=== PATIENT | female | born 1930 | race Caucasian/White ===

== ENCOUNTER 2017-06-18 20:04 | Inpatient (IN) ==
[2017-06-19] MEDS ORDERED: fentaNYL 100 MCG/2 ML VIAL IV STA (00:10)
[2017-06-19] MEDS ORDERED: fentaNYL 100 MCG/2 ML VIAL ONE (00:41)
[2017-06-19 00:58] LABS: Basophils # 0.1 10*3/uL (0.0-0.2); Basophils % 0.4 % (0.0-0.8); Eosinophils # 0.3 10*3/uL (0.0-0.87); Eosinophils % 2.2 % (0.00-10.9); Hematocrit 34.6 VOL% (35.7-47.0); Hemoglobin 11.7 GM/DL (12.0-16.0); Immature Granulocytes % 0.7 %; Lymphocytes # 1.1 10*3/uL (1.4-4.0); Lymphocytes % 7.9 % (21.3-54.2); Mean Corpuscular HGB Conc 33.8 GM/DL (32-36); Mean Corpuscular Hemoglobin 30 PG (27-34); Mean Corpuscular Volume 87.2 FL (87-102); Mean Platelet Volume 10.8 FL (9.6-12.0); Monocytes # 1.1 10*3/uL (0.11-0.8); Monocytes % 8.3 % (1.7-12.7); Neutrophils # 10.8 10*3/uL (1.4-7.4); Neutrophils % 80.5 % (38.7-73.9); Platelet Count 163 T/CUMM (130-400); Red Blood Count 3.97 MC/CUMM (3.8-5.5); Red Cell Distribution Width 14.7 % (9.3-17.3); White Blood Count 13.4 T/CUMM (4-12)
[2017-06-19 01:19] LABS: Alanine Aminotransferase 19 U/L (13-56); Albumin 3.4 G/DL (3.4-5.0); Alkaline Phosphatase 75 U/L (45-117); Aspartate Amino Transferase 21 U/L (0-37); Bilirubin,Total < 0.39 MG/DL (0.2-1.0); Blood Urea Nitrogen 20 MG/DL (7-18); Calcium 8.6 MG/DL (8.5-10.1); Glucose 96 MG/DL (74-106); Osmolality,Calculated 277.7 MOS/KG (273-304); Potassium 3.8 MMOL/L (3.5-5.1); Sodium 138 MMOL/L (136-145); Total Protein 6.3 G/DL (6.4-8.3)
[2017-06-19] MEDS ORDERED: ONDANSETRON 4 MG/2 ML VIAL IV PRN (03:47)
[2017-06-19] MEDS: DEXTROSE 5% NACL 0.9% 1,000 ML IV SCH ×3 (06:16→20:00)
[2017-06-19] MEDS: MORPHINE 2 MG/1 ML SYRINGE IV PRN (06:17)
[2017-06-19] MEDS ORDERED: ALBUTEROL 2.5 MG/3 ML NEB RESP TX PRN (07:30)
[2017-06-19] MEDS: LINACLOTIDE 145 MCG CAPSULE PO SCH (08:58)
[2017-06-19] MEDS: PANTOPRAZOLE 40 MG TABLET PO SCH (08:59)
[2017-06-19] MEDS: buPROPion XL 150 MG TABLET PO SCH ×2 (08:59→21:41)
[2017-06-19] MEDS: LOSARTAN 50 MG TABLET PO SCH (08:59)
[2017-06-19] MEDS: BUDESONIDE/FORMOTEROL 160-4.5 INHALER 6 GM INH SCH ×2 (08:59→21:33)
[2017-06-19] MEDS: ASPIRIN CHEW 81 MG TABLET PO SCH (08:59)
[2017-06-19] MEDS: SERTRALINE 50 MG TABLET PO SCH (08:59)
[2017-06-19] MEDS: LEVOTHYROXINE 112 MCG TABLET PO SCH (08:59)
[2017-06-19] MEDS ORDERED: PANTOPRAZOLE 40 MG TABLET PO SCH (09:00)
[2017-06-19] MEDS: ACETAMINOPHEN 325 MG TABLET PO PRN (10:21)
[2017-06-19] MEDS: methylPREDNISolone SOD SUC 40 MG/1 ML VIAL IV SCH ×2 (10:21→16:56)
[2017-06-19] MEDS: KETOROLAC 15 MG/1 ML VIAL IM SCH ×2 (16:55→23:33)
[2017-06-19] MEDS: PRAVASTATIN 20 MG TABLET PO SCH (21:41)
[2017-06-20] MEDS: methylPREDNISolone SOD SUC 40 MG/1 ML VIAL IV SCH ×3 (01:42→18:26)
[2017-06-20] MEDS: ACETAMINOPHEN 325 MG TABLET PO PRN (01:56)
[2017-06-20] MEDS ORDERED: ALPRAZolam 0.5 MG TABLET PO PRN (02:12)
[2017-06-20] MEDS: DEXTROSE 5% NACL 0.9% 1,000 ML IV SCH ×3 (03:30→21:07)
[2017-06-20] MEDS: KETOROLAC 15 MG/1 ML VIAL IM SCH ×3 (06:00→22:51)
[2017-06-20] MEDS: LEVOTHYROXINE 112 MCG TABLET PO SCH (06:00)
[2017-06-20] MEDS: PANTOPRAZOLE 40 MG TABLET PO SCH (10:14)
[2017-06-20] MEDS: LOSARTAN 50 MG TABLET PO SCH ×2 (10:14→11:20)
[2017-06-20] MEDS: ASPIRIN CHEW 81 MG TABLET PO SCH (10:16)
[2017-06-20] MEDS: LINACLOTIDE 145 MCG CAPSULE PO SCH (10:16)
[2017-06-20] MEDS: SERTRALINE 50 MG TABLET PO SCH (10:17)
[2017-06-20] MEDS: BUDESONIDE/FORMOTEROL 160-4.5 INHALER 6 GM INH SCH ×2 (10:17→21:09)
[2017-06-20] MEDS: buPROPion XL 150 MG TABLET PO SCH ×2 (10:17→21:05)
[2017-06-20] MEDS ORDERED: cloNIDine 0.1 MG TABLET PO ONE (17:11)
[2017-06-20] MEDS: ALBUTEROL/IPRATROPIUM 3 ML NEB RESP TX SCH (19:46)
[2017-06-20] MEDS: risperiDONE 0.5 MG TABLET PO SCH (21:06)
[2017-06-20] MEDS: cloNIDine 0.1 MG TABLET PO SCH (21:06)
[2017-06-20] MEDS: PRAVASTATIN 20 MG TABLET PO SCH (21:07)
[2017-06-20] MEDS: hydrALAZINE 25 MG TABLET PO SCH (22:51)
[2017-06-21] MEDS: ALBUTEROL/IPRATROPIUM 3 ML NEB RESP TX SCH ×4 (01:11→19:01)
[2017-06-21 04:06] LABS: Basophils % 0.3 % (0.0-0.8); Eosinophils # 0.1 10*3/uL (0.0-0.87); Eosinophils % 1.1 % (0.00-10.9); Hematocrit 32.4 VOL% (35.7-47.0); Hemoglobin 10.8 GM/DL (12.0-16.0); Immature Granulocytes % 0.6 %; Immature Granulocytes Absolute 0.06 #; Lymphocytes # 1.1 10*3/uL (1.4-4.0); Lymphocytes % 10.9 % (21.3-54.2); Mean Corpuscular HGB Conc 33.3 GM/DL (32-36); Mean Corpuscular Hemoglobin 29 PG (27-34); Mean Corpuscular Volume 87.3 FL (87-102); Monocytes # 0.9 10*3/uL (0.11-0.8); Monocytes % 8.4 % (1.7-12.7); Neutrophils # 8.2 10*3/uL (1.4-7.4); Neutrophils % 78.7 % (38.7-73.9); Platelet Count 180 T/CUMM (130-400); Red Blood Count 3.71 MC/CUMM (3.8-5.5); Red Cell Distribution Width 14.8 % (9.3-17.3); White Blood Count 10.4 T/CUMM (4-12)
[2017-06-21 04:34] LABS: Albumin 3.3 G/DL (3.4-5.0); Bilirubin,Total 0.4 MG/DL (0.2-1.0); Calcium 8.9 MG/DL (8.5-10.1); Osmolality,Calculated 281.3 MOS/KG (273-304); Potassium 3.8 MMOL/L (3.5-5.1); Total Protein 6.2 G/DL (6.4-8.3)
[2017-06-21] MEDS: DEXTROSE 5% NACL 0.9% 1,000 ML IV SCH ×3 (05:02→22:10)
[2017-06-21] MEDS: KETOROLAC 15 MG/1 ML VIAL IM SCH ×3 (06:03→23:26)
[2017-06-21] MEDS: LEVOTHYROXINE 112 MCG TABLET PO SCH (06:04)
[2017-06-21] MEDS: ACETAMINOPHEN 325 MG TABLET PO PRN ×2 (08:41→20:46)
[2017-06-21] MEDS: LOSARTAN 50 MG TABLET PO SCH (08:42)
[2017-06-21] MEDS: LINACLOTIDE 145 MCG CAPSULE PO SCH (08:43)
[2017-06-21] MEDS: hydrALAZINE 25 MG TABLET PO SCH ×3 (08:43→20:46)
[2017-06-21] MEDS: ASPIRIN CHEW 81 MG TABLET PO SCH (08:44)
[2017-06-21] MEDS: cloNIDine 0.1 MG TABLET PO SCH ×2 (08:44→20:46)
[2017-06-21] MEDS: SERTRALINE 50 MG TABLET PO SCH (08:45)
[2017-06-21] MEDS: PANTOPRAZOLE 40 MG TABLET PO SCH (08:45)
[2017-06-21] MEDS: BUDESONIDE/FORMOTEROL 160-4.5 INHALER 6 GM INH SCH ×2 (08:46→22:10)
[2017-06-21] MEDS: buPROPion XL 150 MG TABLET PO SCH ×2 (08:58→20:51)
[2017-06-21] MEDS: PRAVASTATIN 20 MG TABLET PO SCH (20:46)
[2017-06-21] MEDS: risperiDONE 0.5 MG TABLET PO SCH (20:47)
[2017-06-22] MEDS: ALBUTEROL/IPRATROPIUM 3 ML NEB RESP TX SCH ×4 (00:49→19:12)
[2017-06-22] MEDS: DEXTROSE 5% NACL 0.9% 1,000 ML IV SCH ×3 (05:22→20:25)
[2017-06-22] MEDS: LEVOTHYROXINE 112 MCG TABLET PO SCH (05:33)
[2017-06-22] MEDS: ACETAMINOPHEN 325 MG TABLET PO PRN (05:37)
[2017-06-22] MEDS: KETOROLAC 15 MG/1 ML VIAL IM SCH (05:39)
[2017-06-22] MEDS ORDERED: CYANOCOBALAMIN 1000 MCG/1 ML VIAL IM ONE (08:05)
[2017-06-22] MEDS ORDERED: ERGOCALCIFEROL 50,000 UNIT CAPSULE PO SCH (08:30)
[2017-06-22] MEDS: PANTOPRAZOLE 40 MG TABLET PO SCH (09:11)
[2017-06-22] MEDS: cloNIDine 0.1 MG TABLET PO SCH ×2 (09:11→20:24)
[2017-06-22] MEDS: BUDESONIDE/FORMOTEROL 160-4.5 INHALER 6 GM INH SCH ×2 (09:12→20:23)
[2017-06-22] MEDS: LOSARTAN 50 MG TABLET PO SCH (09:12)
[2017-06-22] MEDS: SERTRALINE 50 MG TABLET PO SCH (09:12)
[2017-06-22] MEDS: LINACLOTIDE 145 MCG CAPSULE PO SCH (09:12)
[2017-06-22] MEDS: buPROPion XL 150 MG TABLET PO SCH ×2 (09:12→20:25)
[2017-06-22] MEDS: ASPIRIN CHEW 81 MG TABLET PO SCH (09:12)
[2017-06-22] MEDS: hydrALAZINE 25 MG TABLET PO SCH ×3 (09:17→20:24)
[2017-06-22] MEDS: NICOTINE 7 MG/24 HR PATCH TRANSDERM SCH (09:17)
[2017-06-22 09:57] LABS: Osmolality,Calculated 281.7 MOS/KG (273-304); Potassium 3.4 MMOL/L (3.5-5.1)
[2017-06-22] MEDS: risperiDONE 0.5 MG TABLET PO SCH (20:24)
[2017-06-22] MEDS: BACLOFEN 10 MG TABLET PO SCH (20:24)
[2017-06-22] MEDS: PRAVASTATIN 20 MG TABLET PO SCH (20:24)
[2017-06-22] MEDS: MORPHINE 2 MG/1 ML SYRINGE IV PRN (23:19)
[2017-06-23] MEDS: ALBUTEROL/IPRATROPIUM 3 ML NEB RESP TX SCH ×4 (00:40→19:12)
[2017-06-23] MEDS: LEVOTHYROXINE 112 MCG TABLET PO SCH (05:39)
[2017-06-23] MEDS: DEXTROSE 5% NACL 0.9% 1,000 ML IV SCH ×3 (05:39→22:22)
[2017-06-23 06:23] LABS: Calcium 8.1 MG/DL (8.5-10.1); Osmolality,Calculated 282.4 MOS/KG (273-304); Potassium 3.5 MMOL/L (3.5-5.1)
[2017-06-23] MEDS: PANTOPRAZOLE 40 MG TABLET PO SCH (11:11)
[2017-06-23] MEDS: SERTRALINE 50 MG TABLET PO SCH (11:11)
[2017-06-23] MEDS: POTASSIUM CHLORIDE 20 MEQ TABLET PO SCH (11:12)
[2017-06-23] MEDS: buPROPion XL 150 MG TABLET PO SCH ×2 (11:12→21:48)
[2017-06-23] MEDS: hydrALAZINE 25 MG TABLET PO SCH ×3 (11:13→21:48)
[2017-06-23] MEDS: LOSARTAN 50 MG TABLET PO SCH (11:13)
[2017-06-23] MEDS: BACLOFEN 10 MG TABLET PO SCH ×2 (11:14→21:48)
[2017-06-23] MEDS: ASPIRIN CHEW 81 MG TABLET PO SCH (11:15)
[2017-06-23] MEDS: LINACLOTIDE 145 MCG CAPSULE PO SCH (11:16)
[2017-06-23] MEDS: BUDESONIDE/FORMOTEROL 160-4.5 INHALER 6 GM INH SCH ×2 (11:17→21:48)
[2017-06-23] MEDS: cloNIDine 0.1 MG TABLET PO SCH ×2 (11:19→21:48)
[2017-06-23] MEDS: NICOTINE 7 MG/24 HR PATCH TRANSDERM SCH (11:22)
[2017-06-23] MEDS: ACETAMINOPHEN 325 MG TABLET PO PRN ×2 (11:31→16:28)
[2017-06-23] MEDS: PRAVASTATIN 20 MG TABLET PO SCH (21:48)
[2017-06-23] MEDS: risperiDONE 0.5 MG TABLET PO SCH (21:48)
[2017-06-24] MEDS: ALBUTEROL/IPRATROPIUM 3 ML NEB RESP TX SCH ×2 (01:04→08:11)
[2017-06-24] MEDS: LEVOTHYROXINE 112 MCG TABLET PO SCH (06:07)
[2017-06-24] MEDS: DEXTROSE 5% NACL 0.9% 1,000 ML IV SCH (06:07)
[2017-06-24] MEDS ORDERED: CYANOCOBALAMIN 500 MCG TABLET PO SCH (09:00)
[2017-06-24] MEDS: ACETAMINOPHEN 325 MG TABLET PO PRN (10:36)
[2017-06-24] MEDS: buPROPion XL 150 MG TABLET PO SCH (10:37)
[2017-06-24] MEDS: SERTRALINE 50 MG TABLET PO SCH (10:37)
[2017-06-24] MEDS: ASPIRIN CHEW 81 MG TABLET PO SCH (10:38)
[2017-06-24] MEDS: hydrALAZINE 25 MG TABLET PO SCH (10:38)
[2017-06-24] MEDS: PANTOPRAZOLE 40 MG TABLET PO SCH (10:38)
[2017-06-24] MEDS: LOSARTAN 50 MG TABLET PO SCH (10:39)
[2017-06-24] MEDS: cloNIDine 0.1 MG TABLET PO SCH (10:39)
[2017-06-24] MEDS: LINACLOTIDE 145 MCG CAPSULE PO SCH (10:41)
[2017-06-24] MEDS: BACLOFEN 10 MG TABLET PO SCH (10:41)
[2017-06-24] MEDS: POTASSIUM CHLORIDE 20 MEQ TABLET PO SCH (10:43)
[2017-06-24] MEDS: BUDESONIDE/FORMOTEROL 160-4.5 INHALER 6 GM INH SCH (10:43)
[2017-06-24] MEDS: NICOTINE 7 MG/24 HR PATCH TRANSDERM SCH (10:43)
[2017-06-24 11:38] VITALS: BP 158/87
== END 2017-06-24 13:40 | disposition swing bed (61) | DRG 552 ==
LOC: EDUNIT# → EDBD → N.ED 20:04 → N.EDINP 20:04 → N.3E 06-19 04:19
PROVIDERS: ADMIT Internal Medicine; ATTEND Internal Medicine

== ENCOUNTER 2018-01-17 18:56 | Inpatient (IN) ==
[2018-01-17 19:49] LABS: Basophils # 0.1 10*3/uL (0.0-0.2); Basophils % 0.6 % (0.0-0.8); Eosinophils # 0.2 10*3/uL (0.0-0.87); Eosinophils % 1.6 % (0.00-10.9); Hematocrit 31.9 VOL% (35.7-47.0); Hemoglobin 10.4 GM/DL (12.0-16.0); Immature Granulocytes % 0.7 %; Immature Granulocytes Absolute 0.08 #; Lymphocytes # 1.3 10*3/uL (1.4-4.0); Lymphocytes % 11.3 % (21.3-54.2); Mean Corpuscular HGB Conc 32.6 GM/DL (32-36); Mean Corpuscular Hemoglobin 29 PG (27-34); Mean Corpuscular Volume 88.4 FL (87-102); Mean Platelet Volume 11.3 FL (9.6-12.0); Monocytes # 1.1 10*3/uL (0.11-0.8); Monocytes % 9.4 % (1.7-12.7); Neutrophils # 8.7 10*3/uL (1.4-7.4); Neutrophils % 76.4 % (38.7-73.9); Platelet Count 165 T/CUMM (130-400); Red Blood Count 3.61 MC/CUMM (3.8-5.5); Red Cell Distribution Width 15.5 % (9.3-17.3); White Blood Count 11.4 T/CUMM (4-12)
[2018-01-17 20:29] LABS: Albumin 3.6 G/DL (3.4-5.0); Bilirubin,Total 0.4 MG/DL (0.2-1.0); Calcium 8.2 MG/DL (8.5-10.1); Osmolality,Calculated 271.1 MOS/KG (273-304); Potassium 4.6 MMOL/L (3.5-5.1); Total Protein 6.5 G/DL (6.4-8.3)
[2018-01-17 20:53] LABS: Apearance,Urine Slightly Hazy (Clear); Bacteria,Urine Occasional /HPF (Few); Bilirubin,Urine Negative (Negative); Blood, Urine Negative (Negative); Glucose,Urine (UA) Negative (Negative); Hyaline Casts,Urine 11 /LPF (0-3); Ketones,Urine Negative (Negative); Mucus,Urine Occasional /LPF (Occasional); Nitrite,Urine Negative (Negative); Protein,Urine 100 MG/DL; RBC,Urine 1 /HPF (0-4); Squamous Epithelial Cell,Urine Occasional /HPF (0-10); Urine Color Yellow (Yellow); Urine Specific Gravity 1.011 (1.001-1.035); WBC,Urine 7 /HPF (0-6)
[2018-01-17] MEDS ORDERED: ACETAMINOPHEN 325 MG TABLET PO PRN (22:17)
[2018-01-17] MEDS ORDERED: ONDANSETRON 4 MG/2 ML VIAL IV PRN (22:17)
[2018-01-17 23:07] LABS: Thyroid Stimulating Hormone 3.37 uIU/ml (0.358-3.74)
[2018-01-18] MEDS: DOCUSATE SODIUM 100 MG CAPSULE PO SCH ×2 (08:58→21:00)
[2018-01-18] MEDS: PANTOPRAZOLE 40 MG TABLET PO SCH (08:58)
[2018-01-18] MEDS: NITROFURANTOIN MACRO/MONO 100 MG CAPSULE PO SCH (21:00)
[2018-01-19] MEDS: LABETALOL 20 MG/4 ML SYRINGE IV PRN ×3 (00:25→21:40)
[2018-01-19] MEDS: LOSARTAN 50 MG TABLET PO SCH ×2 (01:32→09:06)
[2018-01-19] MEDS: hydrALAZINE 25 MG TABLET PO SCH ×5 (01:33→20:30)
[2018-01-19 08:40] LABS: Basophils # 0.1 10*3/uL (0.0-0.2); Basophils % 0.6 % (0.0-0.8); Eosinophils # 0.1 10*3/uL (0.0-0.87); Eosinophils % 1.2 % (0.00-10.9); Hematocrit 30.4 VOL% (35.7-47.0); Hemoglobin 9.9 GM/DL (12.0-16.0); Immature Granulocytes % 0.5 %; Immature Granulocytes Absolute 0.04 #; Lymphocytes # 0.9 10*3/uL (1.4-4.0); Mean Corpuscular HGB Conc 32.6 GM/DL (32-36); Mean Corpuscular Hemoglobin 28 PG (27-34); Mean Corpuscular Volume 86.6 FL (87-102); Mean Platelet Volume 11.3 FL (9.6-12.0); Monocytes # 0.7 10*3/uL (0.11-0.8); Monocytes % 9.1 % (1.7-12.7); Neutrophils # 6.3 10*3/uL (1.4-7.4); Neutrophils % 77.6 % (38.7-73.9); Platelet Count 134 T/CUMM (130-400); Red Blood Count 3.51 MC/CUMM (3.8-5.5); Red Cell Distribution Width 15.4 % (9.3-17.3); White Blood Count 8.1 T/CUMM (4-12)
[2018-01-19] MEDS: DOCUSATE SODIUM 100 MG CAPSULE PO SCH ×2 (09:06→20:29)
[2018-01-19] MEDS: NITROFURANTOIN MACRO/MONO 100 MG CAPSULE PO SCH ×2 (09:06→20:30)
[2018-01-19] MEDS: PANTOPRAZOLE 40 MG TABLET PO SCH (09:06)
[2018-01-19 09:08] LABS: Albumin 3.6 G/DL (3.4-5.0); Bilirubin,Total 0.7 MG/DL (0.2-1.0); Calcium 8.6 MG/DL (8.5-10.1); Osmolality,Calculated 277.7 MOS/KG (273-304); Potassium 3.7 MMOL/L (3.5-5.1); Total Protein 6.3 G/DL (6.4-8.3)
[2018-01-19] MEDS ORDERED: ACETAMINOPHEN/diphenhydrAMINE 500-25 MG TABLET PO ONE (23:50)
[2018-01-19] MEDS ORDERED: cloNIDine 0.1 MG TABLET PO ONE (23:52)
[2018-01-20] MEDS ORDERED: ERGOCALCIFEROL 50,000 UNIT CAPSULE PO SCH (08:30)
[2018-01-20] MEDS ORDERED: ALBUTEROL 2.5 MG/3 ML NEB RESP TX PRN (08:30)
[2018-01-20] MEDS ORDERED: cloNIDine 0.1 MG TABLET PO SCH (09:00)
[2018-01-20] MEDS ORDERED: BUDESONIDE/FORMOTEROL 160-4.5 INHALER 6 GM INH SCH (09:00)
[2018-01-20] MEDS ORDERED: buPROPion XL 150 MG TABLET PO SCH (09:00)
[2018-01-20] MEDS ORDERED: LINACLOTIDE 145 MCG CAPSULE PO SCH (09:00)
[2018-01-20] MEDS ORDERED: BACLOFEN 10 MG TABLET PO SCH (09:00)
[2018-01-20] MEDS ORDERED: POTASSIUM CHLORIDE 20 MEQ TABLET PO SCH (09:00)
[2018-01-20] MEDS ORDERED: ASPIRIN CHEW 81 MG TABLET PO SCH (09:00)
[2018-01-20] MEDS ORDERED: SERTRALINE 50 MG TABLET PO SCH (09:00)
[2018-01-20] MEDS: DOCUSATE SODIUM 100 MG CAPSULE PO SCH (09:21)
[2018-01-20] MEDS: hydrALAZINE 25 MG TABLET PO SCH (09:22)
[2018-01-20] MEDS: LOSARTAN 50 MG TABLET PO SCH (09:22)
[2018-01-20] MEDS: PANTOPRAZOLE 40 MG TABLET PO SCH (09:22)
[2018-01-20] MEDS: NITROFURANTOIN MACRO/MONO 100 MG CAPSULE PO SCH (09:22)
[2018-01-20 12:06] VITALS: BP 127/53
[2018-01-20] MEDS ORDERED: risperiDONE 0.5 MG TABLET PO SCH (21:00)
[2018-01-20] MEDS ORDERED: PRAVASTATIN 20 MG TABLET PO SCH (21:00)
[2018-01-21] MEDS ORDERED: LEVOTHYROXINE 125 MCG TABLET PO SCH (06:30)
== END 2018-01-20 14:12 | disposition home health service (06) | DRG 690 ==
LOC: EDUNIT# → N.ED 18:56 → N.EDINP 22:17 → N.5E 23:22
PROVIDERS: ADMIT Internal Medicine; ATTEND Internal Medicine

== ENCOUNTER 2019-04-22 08:15 | Observation (INO) ==
[2019-04-22] MEDS ORDERED: HYDROmorphone 2 MG/1 ML VIAL IV STA (09:52)
[2019-04-22] MEDS ORDERED: ONDANSETRON 4 MG/2 ML VIAL IV STA (09:53)
[2019-04-22] MEDS ORDERED: ONDANSETRON 4 MG/2 ML VIAL IV PRN (10:28)
[2019-04-22] MEDS ORDERED: ACETAMINOPHEN 325 MG TABLET PO PRN ×2 (10:28→14:37)
[2019-04-22 11:57] LABS: Basophils % 0.3 % (0.0-0.8); Eosinophils # 0.2 10*3/uL (0.0-0.87); Eosinophils % 1.3 % (0.00-10.9); Hematocrit 34.1 VOL% (35.7-47.0); Hemoglobin 11.1 GM/DL (12.0-16.0); Immature Granulocytes % 1.3 %; Immature Granulocytes Absolute 0.15 #; Lymphocytes # 0.9 10*3/uL (1.4-4.0); Lymphocytes % 7.9 % (21.3-54.2); Mean Corpuscular HGB Conc 32.6 GM/DL (32-36); Mean Corpuscular Volume 90.5 FL (87-102); Mean Platelet Volume 11.4 FL (9.6-12.0); Monocytes % 7.4 % (1.7-12.7); Neutrophils % 81.8 % (38.7-73.9); Platelet Count 146 T/CUMM (130-400); Red Blood Count 3.77 MC/CUMM (3.8-5.5); Red Cell Distribution Width 14.7 % (9.3-17.3); White Blood Count 11.9 T/CUMM (4-12)
[2019-04-22 12:14] LABS: Calcium 8.3 MG/DL (8.5-10.1)
[2019-04-22] MEDS ORDERED: hydrALAZINE 20 MG/1 ML VIAL IV ONE ×2 (12:23→12:29)
[2019-04-22] MEDS ORDERED: hydrALAZINE 20 MG/1 ML VIAL IV PRN (12:29)
[2019-04-22] MEDS ORDERED: cloNIDine 0.1 MG TABLET PO ONE (12:51)
[2019-04-22] MEDS ORDERED: INFLUENZA VIRUS VACCINE 0.5 ML SYRINGE IM ONE (14:00)
[2019-04-22] MEDS ORDERED: BACLOFEN 10 MG TABLET PO PRN (14:02)
[2019-04-22] MEDS ORDERED: ALBUTEROL/IPRATROPIUM 3 ML NEB RESP TX PRN (14:03)
[2019-04-22] MEDS: hydrALAZINE 25 MG TABLET PO SCH ×2 (16:12→20:17)
[2019-04-22] MEDS: CARBOXYMETHYLCELLULOSE 1% OPH SOLN BOTH EYES SCH ×2 (16:14→20:26)
[2019-04-22] MEDS: FERROUS SULFATE 325 MG TABLET PO SCH (18:45)
[2019-04-22] MEDS: ALBUTEROL/IPRATROPIUM 3 ML NEB RESP TX SCH (19:23)
[2019-04-22] MEDS: DONEPEZIL 10 MG TABLET PO SCH (20:17)
[2019-04-22] MEDS: cloNIDine 0.1 MG TABLET PO SCH (20:17)
[2019-04-22] MEDS: DOCUSATE SODIUM 100 MG CAPSULE PO SCH (20:18)
[2019-04-22] MEDS: MULTIVITAMIN (OCUVITE) TABLET PO SCH (20:18)
[2019-04-22] MEDS: TEMAZEPAM 15 MG CAPSULE PO PRN (20:18)
[2019-04-22] MEDS: SIMVASTATIN 10 MG TABLET PO SCH (20:18)
[2019-04-22] MEDS: MEMANTINE 10 MG TABLET PO SCH (20:18)
[2019-04-22] MEDS: ACETAMINOPHEN 325 MG TABLET PO SCH (20:18)
[2019-04-22] MEDS: BUDESONIDE/FORMOTEROL 160-4.5 INHALER 6 GM INH SCH (20:28)
[2019-04-23] MEDS: ALBUTEROL/IPRATROPIUM 3 ML NEB RESP TX SCH ×4 (00:45→20:07)
[2019-04-23] MEDS: LEVOTHYROXINE 125 MCG TABLET PO SCH (06:21)
[2019-04-23] MEDS ORDERED: ERGOCALCIFEROL 50,000 UNIT CAPSULE PO SCH (08:00)
[2019-04-23] MEDS: SERTRALINE 50 MG TABLET PO SCH (10:27)
[2019-04-23] MEDS: LOSARTAN 50 MG TABLET PO SCH (10:27)
[2019-04-23] MEDS: ACETAMINOPHEN 325 MG TABLET PO SCH ×2 (10:27→20:50)
[2019-04-23] MEDS: DOCUSATE SODIUM 100 MG CAPSULE PO SCH ×2 (10:28→20:50)
[2019-04-23] MEDS: hydrALAZINE 25 MG TABLET PO SCH ×3 (10:28→20:50)
[2019-04-23] MEDS: POTASSIUM CHLORIDE 20 MEQ TABLET PO SCH (10:28)
[2019-04-23] MEDS: PANTOPRAZOLE 40 MG TABLET PO SCH (10:28)
[2019-04-23] MEDS: MULTIVITAMIN (OCUVITE) TABLET PO SCH ×2 (10:28→20:50)
[2019-04-23] MEDS: FERROUS SULFATE 325 MG TABLET PO SCH ×3 (10:29→17:31)
[2019-04-23] MEDS: cloNIDine 0.1 MG TABLET PO SCH ×2 (10:29→20:50)
[2019-04-23] MEDS: MEMANTINE 10 MG TABLET PO SCH ×2 (10:29→20:50)
[2019-04-23] MEDS: ASPIRIN CHEW 81 MG TABLET PO SCH (10:29)
[2019-04-23] MEDS: BUDESONIDE/FORMOTEROL 160-4.5 INHALER 6 GM INH SCH ×2 (10:29→20:50)
[2019-04-23] MEDS: CARBOXYMETHYLCELLULOSE 1% OPH SOLN BOTH EYES SCH ×3 (10:30→20:49)
[2019-04-23] MEDS: LINACLOTIDE 145 MCG CAPSULE PO SCH (10:30)
[2019-04-23] MEDS: DONEPEZIL 10 MG TABLET PO SCH (20:50)
[2019-04-23] MEDS: SIMVASTATIN 10 MG TABLET PO SCH (20:50)
[2019-04-24] MEDS: ALBUTEROL/IPRATROPIUM 3 ML NEB RESP TX SCH ×4 (00:24→19:55)
[2019-04-24 06:14] LABS: Calcium 7.9 MG/DL (8.5-10.1); Osmolality,Calculated 283.7 MOS/KG (273-304)
[2019-04-24 06:24] LABS: Basophils # 0.1 10*3/uL (0.0-0.2); Basophils % 0.5 % (0.0-0.8); Eosinophils # 0.3 10*3/uL (0.0-0.87); Eosinophils % 2.8 % (0.00-10.9); Hemoglobin 10.3 GM/DL (12.0-16.0); Immature Granulocytes % 0.8 %; Immature Granulocytes Absolute 0.09 #; Lymphocytes # 1.4 10*3/uL (1.4-4.0); Lymphocytes % 11.7 % (21.3-54.2); Mean Corpuscular HGB Conc 32.2 GM/DL (32-36); Mean Corpuscular Volume 91.2 FL (87-102); Mean Platelet Volume 11.2 FL (9.6-12.0); Monocytes % 9.4 % (1.7-12.7); Neutrophils % 74.8 % (38.7-73.9); Platelet Count 142 T/CUMM (130-400); Red Blood Count 3.51 MC/CUMM (3.8-5.5); Red Cell Distribution Width 14.8 % (9.3-17.3); White Blood Count 11.8 T/CUMM (4-12)
[2019-04-24] MEDS: LEVOTHYROXINE 125 MCG TABLET PO SCH (06:42)
[2019-04-24] MEDS: BUDESONIDE/FORMOTEROL 160-4.5 INHALER 6 GM INH SCH ×2 (08:37→20:51)
[2019-04-24] MEDS: CARBOXYMETHYLCELLULOSE 1% OPH SOLN BOTH EYES SCH ×3 (08:38→20:51)
[2019-04-24] MEDS: MULTIVITAMIN (OCUVITE) TABLET PO SCH ×2 (08:38→20:51)
[2019-04-24] MEDS: FERROUS SULFATE 325 MG TABLET PO SCH ×3 (08:39→17:17)
[2019-04-24] MEDS: LINACLOTIDE 145 MCG CAPSULE PO SCH (08:39)
[2019-04-24] MEDS: ASPIRIN CHEW 81 MG TABLET PO SCH (08:39)
[2019-04-24] MEDS: SERTRALINE 50 MG TABLET PO SCH (08:39)
[2019-04-24] MEDS: PANTOPRAZOLE 40 MG TABLET PO SCH (08:39)
[2019-04-24] MEDS: ACETAMINOPHEN 325 MG TABLET PO SCH ×2 (08:39→20:50)
[2019-04-24] MEDS: hydrALAZINE 25 MG TABLET PO SCH ×3 (08:40→20:50)
[2019-04-24] MEDS: DOCUSATE SODIUM 100 MG CAPSULE PO SCH ×2 (08:40→20:51)
[2019-04-24] MEDS: cloNIDine 0.1 MG TABLET PO SCH ×2 (08:40→20:51)
[2019-04-24] MEDS: POTASSIUM CHLORIDE 20 MEQ TABLET PO SCH (08:40)
[2019-04-24] MEDS: MEMANTINE 10 MG TABLET PO SCH ×2 (08:40→20:51)
[2019-04-24] MEDS: LOSARTAN 50 MG TABLET PO SCH (08:40)
[2019-04-24] MEDS: DONEPEZIL 10 MG TABLET PO SCH (20:50)
[2019-04-24] MEDS: TEMAZEPAM 15 MG CAPSULE PO PRN (20:50)
[2019-04-24] MEDS: SIMVASTATIN 10 MG TABLET PO SCH (20:51)
[2019-04-25] MEDS: ALBUTEROL/IPRATROPIUM 3 ML NEB RESP TX SCH ×3 (01:05→13:35)
[2019-04-25] MEDS: LEVOTHYROXINE 125 MCG TABLET PO SCH (06:28)
[2019-04-25] MEDS: POTASSIUM CHLORIDE 20 MEQ TABLET PO SCH (08:58)
[2019-04-25] MEDS: FERROUS SULFATE 325 MG TABLET PO SCH ×2 (08:59→12:05)
[2019-04-25] MEDS: ASPIRIN CHEW 81 MG TABLET PO SCH (08:59)
[2019-04-25] MEDS: MULTIVITAMIN (OCUVITE) TABLET PO SCH (08:59)
[2019-04-25] MEDS: cloNIDine 0.1 MG TABLET PO SCH (08:59)
[2019-04-25] MEDS: DOCUSATE SODIUM 100 MG CAPSULE PO SCH (08:59)
[2019-04-25] MEDS: PANTOPRAZOLE 40 MG TABLET PO SCH (08:59)
[2019-04-25] MEDS: SERTRALINE 50 MG TABLET PO SCH (08:59)
[2019-04-25] MEDS: LOSARTAN 50 MG TABLET PO SCH (08:59)
[2019-04-25] MEDS: hydrALAZINE 25 MG TABLET PO SCH (08:59)
[2019-04-25] MEDS: MEMANTINE 10 MG TABLET PO SCH (08:59)
[2019-04-25] MEDS: ACETAMINOPHEN 325 MG TABLET PO SCH (09:00)
[2019-04-25] MEDS: CARBOXYMETHYLCELLULOSE 1% OPH SOLN BOTH EYES SCH (09:00)
[2019-04-25] MEDS: BUDESONIDE/FORMOTEROL 160-4.5 INHALER 6 GM INH SCH (09:00)
[2019-04-25] MEDS: LINACLOTIDE 145 MCG CAPSULE PO SCH (09:02)
[2019-04-25 12:13] VITALS: BP 139/65
== END 2019-04-25 15:08 ==
LOC: N.EDINP 08:15 → N.ED 08:15 → N.3E 11:16
PROVIDERS: ADMIT Internal Medicine; ATTEND Internal Medicine